=== PATIENT | male | born 1965 | race Caucasian/White ===

== ENCOUNTER 2018-12-18 19:50 | Observation (INO) | payer BC ==
[2018-12-18 20:11] LABS: CHLORIDE,CL 105 mEq/L (98-106); SODIUM,NA 144 mEq/L (136-145)
[2018-12-18] MEDS ORDERED: Diphtheria,Pertussis(Acell),Tetanus Vaccine 0.5 ML Syringe IM ONE (20:15)
[2018-12-18] MEDS ORDERED: Lidocaine 1% 20 ML MDV INJECT ONE (20:15)
--- NOTE | 2018-12-18 21:19 | EDM.PDOC ---
ED HPI GENERAL MEDICAL PROBLEM - General Chief Complaint: Trauma Stated Complaint: "kicked in the head by a bull" Time Seen by Provider: 12/18/18 20:08 Source of Information: Reports: Patient, Other (co-workers) History Limitations: Reports: Altered Mental Status - History of Present Illness INITIAL COMMENTS - FREE TEXT/NARRATIVE: Abundio is a 53 yo male who presents to the ED via private vehicle after being knocked over by a bull. Co-worker witnessed the event and states Abundio was behind the bull and it ended up turning around knocking Abundio over. Immediately it took off and it appeared as if the bulls hoof caught Abundio's face. Co-worker doesn't think the bull technically stepped on Abundio. He states Abundio was alert and never had any loss of consciousness. He was able to get himself up right away and noticed his face to be bleeding. He denies any discomfort besides the cuts to his face. Abundio admits he doesn't recall anything that happened today. He is alert to person and states he knows he is at the [facility]. Doesn't recall the exact date but does know the season of September. Initially stated the president was Peyman but later corrected and states the correct answer. 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 Onset: Today Location: Reports: Head Right Chest Pain Score (Numeric/FACES): 4 - Related Data Allergies Allergy/AdvReac Type Severity Reaction Status Date / Time No Known Allergies Allergy Verified 12/18/18 20:16 Home Meds: Home Meds . [No Known Home Meds] 12/18/18 [History] Past Medical History - Past Surgical History HEENT Surgical History: Reports: Tonsillectomy GI Surgical History: Reports: Appendectomy, Hernia, Inguinal Social & Family History - Family History Cardiac: Reports: High Cholesterol, Hypertension - Tobacco Use Smoking Status *Q: Never Smoker - Alcohol Use Alcohol Use History: Yes Alcohol Use Frequency: Socially - Recreational Drug Use Recreational Drug Use: No - Living Situation & Occupation Living situation: Reports: Single, Alone Review of Systems - Review of Systems Review Of Systems: See Below Constitutional: Reports: No Symptoms Eyes: Denies: Blurred Vision, Decreased Acuity, Photophobia, Vision Change Ears: Reports: No Symptoms. Denies: Dizziness, Pain, Bloody Discharge Skin: Reports: Wound (lacerations to scalp) Neurological: Reports: Confusion. Denies: Dizziness, Headache, Difficulty Walking, Change in Speech ED EXAM, GENERAL - Physical Exam Exam: See Below Exam Limited By: Altered Mental Status (short term memory loss) General Appearance: Alert, No Apparent Distress, Other (GCS15) Eye Exam: Bilateral Eye: EOMI, Normal Inspection, PERRL Ears: Normal External Exam, Normal Canal, Hearing Grossly Normal, Normal TMs Ear Exam: Bilateral Ear: Auricle Normal, Canal Normal, TM normal Nose: Normal Mucosa. No: Nasal Drainage Throat/Mouth: Normal Inspection, Normal Lips, Normal Teeth, Normal Gums, Normal Oropharynx, Normal Voice, No Airway Compromise Head: Facial Swelling, Other (Laceration to midline of scalp measuring 5cm in length, Laceration above right eye lid measuring 2cm in length. Flap laceration to bridge of nose, rougly 1cm in total length. ). No: Facial Tenderness (no bony deficits noted) Neck: Normal Inspection, Supple, Non-Tender, Full Range of Motion. No: Limited Range of Motion, Tender Lateral, Tender Midline Respiratory/Chest: No Respiratory Distress, Lungs Clear, Normal Breath Sounds, Chest Non-Tender Cardiovascular: Normal Peripheral Pulses, Regular Rate, Rhythm, No Edema GI/Abdominal: Normal Bowel Sounds, Soft, Non-Tender, No Organomegaly, No Mass, Pelvis Stable Back Exam: No: CVA Tenderness (L), CVA Tenderness (R), Decreased Range of Motion , Paraspinal Tenderness, Vertebral Tenderness Extremities: Normal Inspection, Normal Capillary Refill, Arm Pain (discomfort to right shoulder while sitting in supine position, full active ROM to right shoulder. ). No: Pedal Edema, Leg Pain, Limited Range of Motion Neurological: CN II-XII Intact, No Motor/Sensory Deficits, Memory Loss Recent Events. No: Inattentive, Disoriented, Slow to Respond, Unresponsive, Memory Loss Remote Events, Abnormal Gait, Abnormal Reflexes Skin Exam: Wound/Incision (see above, mild bleeding from lacerations to forehead. ) ED TRAUMA PROCEDURES - Laceration/Wound Repair Midline Forehead Lac/Wound Length In cm: 5 Appearance: Superficial, Irregular, Mildly Contaminated Distal NVT: Neuro & Vascular Intact Anesthetic Type: Local Local Anesthesia - Lidocaine (Xylocaine): 1% Plain Local Anesthetic Volume: 3cc Skin Prep: Chlorhexidine (Hibiciens), Saline, Sterile Drape Exploration/Debridement/Repair: Wound Explored, In a Bloodless Field, Explored to Base, Minimal Debridement, No Foreign Material Found Closed With: Sutures Suture Size: other (5-0) Suture Type: Prolene, Interrupted, Simple Tetanus Status Addressed: Yes Complications: No Right Forehead Lac/Wound Length In cm: 2 Appearance: Superficial Distal NVT: Neuro & Vascular Intact Anesthetic Type: Local Local Anesthesia - Lidocaine (Xylocaine): 1% Plain Local Anesthetic Volume: 2cc Skin Prep: Chlorhexidine (Hibiciens) Exploration/Debridement/Repair: Wound Explored, In a Bloodless Field, Explored to Base, No Foreign Material Found Closed With: Sutures Suture Size: other (5-0) # of Sutures: 6 Suture Type: Prolene, Interrupted, Simple Tetanus Status Addressed: Yes Complications: No Nose Lac/Wound Length In cm: 1 Appearance: Superficial, Stellate Distal NVT: Neuro & Vascular Intact Anesthetic Type: Local Local Anesthesia - Lidocaine (Xylocaine): 1% Plain Local Anesthetic Volume: 1cc Skin Prep: Chlorhexidine (Hibiciens) Exploration/Debridement/Repair: Wound Explored, In a Bloodless Field, Explored to Base Closed With: Sutures Suture Size: other (5-0) # of Sutures: 1 Suture Type: Prolene, Interrupted, Simple Course - Vital Signs Last Recorded V/S: Last Vital Signs Temp 98 F 12/18/18 19:50 Pulse 95 12/18/18 19:50 Resp 18 12/18/18 19:50 BP 145/100 H 12/18/18 19:50 Pulse Ox 98 12/18/18 19:50 - Orders/Labs/Meds Orders: Active Orders 24 hr Category Date Time Status Vaccines to be Administered [RC] PER UNIT ROUTINE Care 12/18/18 20:15 Active Cervical Spine wo Cont [CT] Routine Exams 12/18/18 Ordered Chest 2V [CR] Routine Exams 12/18/18 Taken Head wo Cont [CT] Routine Exams 12/18/18 Taken Pelvis 1V or 2V [CR] Routine Exams 12/18/18 Taken Labs: Laboratory Tests 12/18/18 12/18/18 12/18/18 Range/Units 19:55 19:55 19:55 WBC 7.9 (5.0-10.0) 10^3/uL RBC 5.52 (4.50-6.00) 10^6/uL Hgb 16.6 (14.0-18.0) g/dL Hct 48.5 (40.0-54.0) % MCV 87.9 (82.0-94.0) fL MCH 30.1 (27.0-32.0) pg MCHC 34.2 (33.0-38.0) g/dL RDW Coeff of Olivia 12.9 (11.0-15.0) % Plt Count 247 (150-400) 10^3/uL Neut % (Auto) 71.5 (35-85) % Lymph % (Auto) 18.8 (10-55) % [place] % (Auto) 7.8 (0-16) % Eos % (Auto) 1.3 (0-5) % Baso % (Auto) 0.6 (0-3) % Neut # (Auto) 5.65 (1.80-7.00) 10^3/uL Lymph # (Auto) 1.49 (1.00-4.80) 10^3/uL [place] # (Auto) 0.62 (0.00-0.80) 10^3/uL Eos # (Auto) 0.10 (0.00-0.45) 10^3/uL Baso # (Auto) 0.05 10^3/uL PT 10.4 (9.7-12.3) SEC INR 1.00 (0.92-1.18) Sodium 144 (136-145) mEq/L Potassium 3.7 (3.5-5.0) mEq/L Chloride 105 (98-106) mEq/L Carbon Dioxide 31 (21-32) mmol/L BUN 24 H (7-18) mg/dL Creatinine 1.2 (0.7-1.3) mg/dL Est Cr Clr Drug Dosing TNP Estimated GFR (MDRD) > 60 (>=60) mL/min Glucose 109 H (75-99) mg/dL Calcium 9.1 (8.4-10.1) mg/dL Total Bilirubin 0.5 (0.0-1.0) mg/dL AST 23 (15-37) U/L ALT 39 (12-78) U/L Alkaline Phosphatase 71 (46-116) U/L Total Protein 7.4 (6.4-8.2) g/dL Albumin 4.2 (3.4-5.0) g/dL Amylase 85 (25-115) U/L Meds: Medications Discontinued Medications Generic Name Dose Route Start Last Admin Trade Name Freq PRN Reason Stop Dose Admin Diphtheria/Tetanus/Acell Pertussis 0.5 ml 12/18/18 20:15 12/18/18 21:00 Adacel IM 12/18/18 20:16 0.5 ml .ONCE ONE Administration Lidocaine HCl 20 ml 12/18/18 20:15 12/18/18 20:20 Xylocaine 1% INJECT 12/18/18 20:16 20 ml ONETIME ONE Administration - Radiology Interpretation Free Text/Narrative:: Ct was negative for any acute intracranial pathology per radiologist at [place]. Chest x-ray reviewed by radiologist with no acute cardiopulmonary findings. Pelvis negative. Departure - Departure Time of Disposition: 21:31 Disposition: Refer to Observation Clinical Impression: Concussion without loss of consciousness, initial encounter Laceration of forehead Qualifiers: Encounter type: initial encounter Qualified Code(s): S01.81XA - Laceration without foreign body of other part of head, initial encounter - Discharge Information - Problem List & Annotations (1) Concussion without loss of consciousness, initial encounter SNOMED Code(s): 70561947 Code(s): S06.0X0A - CONCUSSION WITHOUT LOSS OF CONSCIOUSNESS, INITIAL ENCOUNTER Status: Acute (2) Laceration of forehead SNOMED Code(s): 779801601 Code(s): S01.81XA - LACERATION W/O FOREIGN BODY OF OTH PART OF HEAD, INIT ENCNTR Status: Acute Qualifiers: Encounter type: initial encounter Qualified Code(s): S01.81XA - Laceration without foreign body of other part of head, initial encounter - My Orders Last 24 Hours: My Active Orders 12/18/18 Cervical Spine wo Cont [CT] Routine Chest 2V [CR] Routine Head wo Cont [CT] Routine Pelvis 1V or 2V [CR] Routine 12/18/18 20:15 Vaccines to be Administered [RC] PER UNIT ROUTINE - Assessment/Plan Admission H&P: Please use this note as an admission H&P Last 24 Hours: My Active Orders 12/18/18 Cervical Spine wo Cont [CT] Routine Chest 2V [CR] Routine Head wo Cont [CT] Routine Pelvis 1V or 2V [CR] Routine 12/18/18 20:15 Vaccines to be Administered [RC] PER UNIT ROUTINE Plan: Abundio was stable from the time he walked into ED. He continued to have short term memory loss and can't recall any event that happened today. senior living memory intact. His GCS was 15 thru out the entire time in ED. CT scan of the brain was negative. No skull fractures or acute bleeds. Will admit to Dr. Anand' s services under observation. Dr. Anand contacted and agreed with admission. Abundio was transferred to the floor in satisfactory condition. Will closely monitor neuro status. Tdap updated today.
[2018-12-18] MEDS ORDERED: Ondansetron 4 MG/2 ML SDV IV PRN (21:56)
[2018-12-18] MEDS ORDERED: Ibuprofen 200 MG Tab PO PRN (21:56)
[2018-12-18] MEDS ORDERED: Acetaminophen 325 MG Tab PO PRN (21:56)
[2018-12-18] MEDS ORDERED: Sodium Chloride 0.9% 10 ML Syringe FLUSH PRN (21:56)
[2018-12-18] MEDS ORDERED: Bacitracin/Neomycin/Polymyxin B Oint 28.4 GM Tube ONE (22:52)
[2018-12-19] MEDS ORDERED: Bacitracin/Neomycin/Polymyxin B Oint 0.9 GM U/D Packet TOP SCH (08:00)
--- NOTE | 2018-12-19 09:06 | PCM.DCSUM1 ---
Discharge Summary - Hospital Course Free Text/Narrative:: Abundio presented to ER after being knocked over by a bull. Coworker witnessed the event and states that Abundio was knocked to the ground and the bull's hoof caught Abundio's face. Patient did not lose consciousness but has not recollection of the incident. He was able to get up from the ground immediately per self and noted his face was bleeding to the cuts. Alert and oriented to person and place in ER. CT scan of his head was done and was negative. Sutures placed to 2 large lacerations on his forehead. Admitted to monitor neuro status. Diagnosis: Stroke: No Modified Mccone Scale: No Symptoms at All Modified Mccone Scale Score: 0 - Discharge Data Discharge Date: 12/19/18 Discharge Disposition: Home, Self-Care 01 Condition: Good - Patient Summary/Data Complications: none Hospital Course: Patient is feeling good this am. Denies much of any headache. Mild chest discomfort. Questions if possibly the bull may have stepped on his chest. Chest xray was done in ER which was negative. Neuro checks have been normal. Is ambulating without concern. No nausea. Appetite is good. Sutures are intact to his forehead. He does have mild facial swelling in the forehead and down to his eyes and cheeks. Denies much for tenderness. Vision clear. Will discharge home with family who will be present for the next day or so. - Patient Instructions Diet: Usual Diet as Tolerated Activity: As Tolerated - Discharge Plan *PRESCRIPTION DRUG MONITORING PROGRAM REVIEWED*: No *COPY OF PRESCRIPTION DRUG MONITORING REPORT IN PATIENT LAURA: No Home Medications: Home Meds . [No Known Home Meds] 12/18/18 [History] Forms: ED Department Discharge Referrals: Grabiel Doan PA-C [Emergency Provider] - (Follow up with Marquis Doan in 7-10 days for suture removal and hospital follow up) - Discharge Summary/Plan Comment DC Time >30 min.: No - General Info Date of Service: 12/19/18 Admission Dx/Problem (Free Text: Concussion without loss of consciousness Laceration to Forehead Functional Status: Reports: Pain Controlled, Tolerating Diet, Ambulating - Review of Systems General: Denies: Weakness, Fatigue, Malaise HEENT: Reports: Rhinitis, Other (mild facial discomfort). Denies: Visual Changes Pulmonary: Denies: Shortness of Breath, Cough Cardiovascular: Denies: Chest Pain, Edema, Lightheadedness Gastrointestinal: Denies: Abdominal Pain, Nausea, Vomiting Genitourinary: Reports: No Symptoms Musculoskeletal: Reports: No Symptoms Skin: Reports: Other (wounds) Neurological: Denies: Confusion, Dizziness, Headache, Syncope, Weakness - Patient Data Vitals - Most Recent: Last Vital Signs Temp 97.3 F 12/19/18 08:00 Pulse 73 12/19/18 08:00 Resp 18 12/19/18 08:00 BP 121/64 12/19/18 08:00 Pulse Ox 98 12/19/18 08:00 Weight - Most Recent: 166 lb 11.2 oz Lab Results - Last 24 hrs: Laboratory Results - last 24 hr 12/18/18 12/18/18 12/18/18 Range/Units 19:55 19:55 19:55 WBC 7.9 (5.0-10.0) 10^3/uL RBC 5.52 (4.50-6.00) 10^6/uL Hgb 16.6 (14.0-18.0) g/dL Hct 48.5 (40.0-54.0) % MCV 87.9 (82.0-94.0) fL MCH 30.1 (27.0-32.0) pg MCHC 34.2 (33.0-38.0) g/dL RDW Coeff of Olivia 12.9 (11.0-15.0) % Plt Count 247 (150-400) 10^3/uL Neut % (Auto) 71.5 (35-85) % Lymph % (Auto) 18.8 (10-55) % [place] % (Auto) 7.8 (0-16) % Eos % (Auto) 1.3 (0-5) % Baso % (Auto) 0.6 (0-3) % Neut # (Auto) 5.65 (1.80-7.00) 10^3/uL Lymph # (Auto) 1.49 (1.00-4.80) 10^3/uL [place] # (Auto) 0.62 (0.00-0.80) 10^3/uL Eos # (Auto) 0.10 (0.00-0.45) 10^3/uL Baso # (Auto) 0.05 10^3/uL PT 10.4 (9.7-12.3) SEC INR 1.00 (0.92-1.18) Sodium 144 (136-145) mEq/L Potassium 3.7 (3.5-5.0) mEq/L Chloride 105 (98-106) mEq/L Carbon Dioxide 31 (21-32) mmol/L BUN 24 H (7-18) mg/dL Creatinine 1.2 (0.7-1.3) mg/dL Est Cr Clr Drug Dosing TNP Estimated GFR (MDRD) > 60 (>=60) mL/min Glucose 109 H (75-99) mg/dL Calcium 9.1 (8.4-10.1) mg/dL Total Bilirubin 0.5 (0.0-1.0) mg/dL AST 23 (15-37) U/L ALT 39 (12-78) U/L Alkaline Phosphatase 71 (46-116) U/L Total Protein 7.4 (6.4-8.2) g/dL Albumin 4.2 (3.4-5.0) g/dL Amylase 85 (25-115) U/L Urine Color (YELLOW) Urine Appearance (CLEAR) Urine pH (4.5-8.0) Ur Specific [employer] (1.003-1.020) Urine Protein (NEGATIVE) mg/dL Urine Glucose (UA) (NEGATIVE) mg/dL Urine Ketones (NEGATIVE) mg/dL Urine Occult Blood (NEGATIVE) Urine Nitrite (NEGATIVE) Urine Bilirubin (NEGATIVE) Urine Urobilinogen (0.2-1.0) EU/dL Ur Leukocyte Esterase (NEGATIVE) Urine RBC (0-5) /HPF Urine WBC (0-5) /HPF 12/18/18 Range/Units 21:15 WBC (5.0-10.0) 10^3/uL RBC (4.50-6.00) 10^6/uL Hgb (14.0-18.0) g/dL Hct (40.0-54.0) % MCV (82.0-94.0) fL MCH (27.0-32.0) pg MCHC (33.0-38.0) g/dL RDW Coeff of Olivia (11.0-15.0) % Plt Count (150-400) 10^3/uL Neut % (Auto) (35-85) % Lymph % (Auto) (10-55) % [place] % (Auto) (0-16) % Eos % (Auto) (0-5) % Baso % (Auto) (0-3) % Neut # (Auto) (1.80-7.00) 10^3/uL Lymph # (Auto) (1.00-4.80) 10^3/uL [place] # (Auto) (0.00-0.80) 10^3/uL Eos # (Auto) (0.00-0.45) 10^3/uL Baso # (Auto) 10^3/uL PT (9.7-12.3) SEC INR (0.92-1.18) Sodium (136-145) mEq/L Potassium (3.5-5.0) mEq/L Chloride (98-106) mEq/L Carbon Dioxide (21-32) mmol/L BUN (7-18) mg/dL Creatinine (0.7-1.3) mg/dL Est Cr Clr Drug Dosing Estimated GFR (MDRD) (>=60) mL/min Glucose (75-99) mg/dL Calcium (8.4-10.1) mg/dL Total Bilirubin (0.0-1.0) mg/dL AST (15-37) U/L ALT (12-78) U/L Alkaline Phosphatase (46-116) U/L Total Protein (6.4-8.2) g/dL Albumin (3.4-5.0) g/dL Amylase (25-115) U/L Urine Color Yellow (YELLOW) Urine Appearance Clear (CLEAR) Urine pH 6.0 (4.5-8.0) Ur Specific [employer] 1.025 H (1.003-1.020) Urine Protein Negative (NEGATIVE) mg/dL Urine Glucose (UA) Negative (NEGATIVE) mg/dL Urine Ketones Negative (NEGATIVE) mg/dL Urine Occult Blood Trace-lysed H (NEGATIVE) Urine Nitrite Negative (NEGATIVE) Urine Bilirubin Negative (NEGATIVE) Urine Urobilinogen 0.2 (0.2-1.0) EU/dL Ur Leukocyte Esterase Negative (NEGATIVE) Urine RBC Not seen (0-5) /HPF Urine WBC Not seen (0-5) /HPF Med Orders - Current: Current Medications Acetaminophen (Tylenol) 650 mg PO Q4H PRN PRN Reason: Pain (Mild 1-3)/fever Ibuprofen (Motrin) 400 mg PO Q6H PRN PRN Reason: Pain (mild 1-3) Last Admin: 12/18/18 22:49 Dose: 400 mg Neomycin/Polymyxin/Bacitracin (Triple Antibiotic Oint) 1 each TOP BID JOSE RAUL Last Admin: 12/19/18 07:24 Dose: 1 each Ondansetron HCl (Zofran) 4 mg IV Q4H PRN PRN Reason: Nausea/Vomiting Sodium Chloride (Saline Flush) 10 ml FLUSH ASDIRECTED PRN PRN Reason: Keep Vein Open Discontinued Medications Diphtheria/Tetanus/Acell Pertussis (Adacel) 0.5 ml IM .ONCE ONE Stop: 12/18/18 20:16 Last Admin: 12/18/18 21:00 Dose: 0.5 ml Lidocaine HCl (Xylocaine 1%) 20 ml INJECT ONETIME ONE Stop: 12/18/18 20:16 Last Admin: 12/18/18 20:20 Dose: 20 ml Neomycin/Polymyxin/Bacitracin (Triple Antibiotic Oint) Confirm Administered Dose 28.4 gm .ROUTE .STK-MED ONE Stop: 12/18/18 22:53 Last Admin: 12/18/18 22:56 Dose: 1 applic - Exam General: Reports: Alert, Oriented HEENT: Reports: Mucous Membr. Moist/[place] Neck: Reports: Supple Lungs: Reports: Clear to Auscultation, Normal Respiratory Effort Cardiovascular: Reports: Regular Rate, Regular Rhythm GI/Abdominal Exam: Normal Bowel Sounds, Soft, Non-Tender Extremities: Normal Inspection, No Pedal Edema Skin: Reports: Other (sutures intact to forehead, well approximated) Wound/Incisions: Reports: Erythema (mild redness to face) Neurological: Reports: No New Focal Deficit
== END 2018-12-19 09:45 | disposition home or self-care (01) ==
LOC: CC.ED 19:50 → UNDOADMOB 21:36 → CC.MS 21:36
PROVIDERS: ADMIT Physician Assistant Medical; ATTEND Family Medicine
DX: S01.81XA Laceration without foreign body of other part of head, initial encounter (principal); W55.22XA Struck by cow, initial encounter
CPT/HCPCS: 36415; 70450; 71046; 72170; 80053; 81001; 82150; 85025; 85610; 90471; 90715; 99285-25; A9270-GY; G0378

== ENCOUNTER 2024-01-25 08:56 | Day surgery (SDC) | payer BC ==
[2024-01-25] MEDS: Lactated Ringers 1,000 ML IV SCH (09:09)
[2024-01-25] MEDS ORDERED: Midazolam 1 MG/ML 2 ML SDV ONE (09:50)
[2024-01-25] MEDS ORDERED: Propofol 200 MG/20 ML SDV ONE ×2 (09:50)
[2024-01-25] MEDS ORDERED: fentaNYL 50 MCG/ML SDV ONE (09:50)
[2024-01-25] MEDS ORDERED: Ondansetron 4 MG/2 ML SDV ONE (09:50)
[2024-01-25] MEDS ORDERED: Phenylephrine 1% 10 MG/ML SDV ONE (09:50)
[2024-01-25] MEDS ORDERED: Ketamine 200 MG/20 ML MDV ONE (09:50)
[2024-01-25] MEDS ORDERED: ePHEDrine 50 MG/ML SDV ONE (09:50)
== END 2024-01-25 11:14 | disposition home or self-care (01) ==
LOC: CC.SDS 08:56
PROVIDERS: ATTEND Family Medicine
DX: Z12.11 Encounter for screening for malignant neoplasm of colon (principal); D12.2 Benign neoplasm of ascending colon; D12.3 Benign neoplasm of transverse colon; D12.8 Benign neoplasm of rectum; K57.30 Diverticulosis of large intestine without perforation or abscess without bleeding; E78.00 Pure hypercholesterolemia, unspecified; N40.0 Benign prostatic hyperplasia without lower urinary tract symptoms; Z79.82 Long term (current) use of aspirin; Z79.899 Other long term (current) drug therapy; Z86.010 Personal history of colon polyps
CPT/HCPCS: 00811; J2250; J2371; J2405; J2704; J3010; J3490; J7120

== ENCOUNTER 2025-05-27 20:22 | Emergency (ER) | payer BC ==
[2025-05-27 21:42] LABS: APPEARANCE,URINE CLEAR (CLEAR); GLUCOSE,URINE NEGATIVE (NEGATIVE); OCCULT BLOOD,URINE LARGE (NEGATIVE)
[2025-05-27 21:56] LABS: RBC CLUMPS,URINE PRESENT /HPF (NOT SEEN)
== END 2025-05-27 21:41 | disposition home or self-care (01) ==
LOC: CC.ED 20:22
DX: R33.9 Retention of urine, unspecified (principal); Z79.82 Long term (current) use of aspirin; Z79.899 Other long term (current) drug therapy; Z90.49 Acquired absence of other specified parts of digestive tract
CPT/HCPCS: 51702; 81001; 99283